=== PATIENT | male | born 1970 | race Caucasian/White ===

== ENCOUNTER 2020-06-07 11:39 | Outpatient (CLI) | payer OTHER, SELFPAY ==
--- NOTE | ~2020-06-07 | XR_ITS ---
XR elbow RT 2V DATE: 06/07/2020 12:15 INDICATION: Injury 2 months ago. Persistent right elbow pain. TECHNIQUE: AP and lateral views COMPARISON: None FINDINGS: Slight dorsal olecranon process spurring. No fracture or dislocation or joint effusion. Joint spaces are preserved. IMPRESSION: No fracture or dislocation or joint effusion Reviewed, dictated and finalized at location A.
== END 2020-06-07 11:40 | disposition home or self-care (01) ==
LOC: ANHIMG 11:48
PROVIDERS: PCP Family Medicine; Visit Provider Physician Assistant
DX: S59.901A Unspecified injury of right elbow, initial encounter (principal); M25.521 Pain in right elbow; X58.XXXA Exposure to other specified factors, initial encounter
CPT/HCPCS: 73070

== ENCOUNTER → 2023-07-01 10:24 | Outpatient (CLI) | payer OTHER, SELFPAY ==
--- NOTE | ~2023-07-01 | CT_ITS ---
EXAMINATION: CT lung screening DATE: 07/01/2023 10:38 INDICATION: Personal history of nicotine dependence TECHNIQUE: Computed tomography (CT) of the chest was performed without intravenous contrast. The dose -length product was 197.97 mGy-cm. Automated exposure control and iterative reconstruction technique were employed. COMPARISON: None FINDINGS: No thoracic lymphadenopathy. No significant pleural or pericardial effusion. There are scat tered calcified granulomas of the lungs, hilum and spleen. There are a few small scattered noncalcifi ed nodules measuring 3 mm or less. There is emphysema. There are bilateral groundglass densities with mosaic attenuation in the upper lobes. No pneumothorax. No endobronchial lesions. No acute osseous a bnormality. IMPRESSION: 1. Lung-RADS category 2: Benign appearance or behavior. Continue annual screening with noncontrast lo w-dose chest CT in 12 months. Reviewed, dictated and finalized at location A. IMPRESSION: 1. Lung-RADS category 2: Benign appearance or behavior. Continue annual screeni ng with noncontrast low-dose chest CT in 12 months.
== END ==
PROVIDERS: PCP Family Medicine; Visit Provider Family Medicine
DX: Z12.2 Encounter for screening for malignant neoplasm of respiratory organs (principal); Z87.891 Personal history of nicotine dependence
CPT/HCPCS: 71271

== ENCOUNTER 2023-07-16 00:47 | Day surgery (SDC) | payer OTHER, SELFPAY ==
[2023-07-02 12:06] VITALS: BMI 30.2
--- NOTE | 2023-07-14 09:04 | SUR.PREOP ---
Patient called regarding upcoming procedure. Reviewed preop instructions, appointment times, and procedure prep.
--- NOTE | 2023-07-15 15:36 | PM.HPGS ---
History of Present Illness History of Present Illness Consent: Risks, benefits, and alternatives have been discussed and questions answered. Patient agrees to proceed with procedure. Chief complaint: neoplasm screening, GERD w/o Esophagitis Narrative: Bienvenido Higuera is a 52 year old male Referred for colon cancer screening. He also has a sensation that there is something in his throat in the suprasternal notch. Sometimes when swallowing you will feel as though something get caught there he can regurgitate it or cough it back up. He does not feel things get caught in the substernal area. He just started taking omeprazole a couple weeks ago and thinks that might be helping a bit. Review of Systems Review of Systems: All systems reviewed & are unremarkable except as noted in HPI and below PMFSH Past Medical History Medical History Benign essential HTN ANJALI (generalized anxiety disorder) Hyperglycemia Mixed hyperlipidemia Smoker Surgical History Surgical History H/O left knee surgery History of arthroscopic knee surgery Previous back surgery Family History Family History Father , 60yrs old Lung cancer Mother Breast cancer Hypertension Heart disease Social History Social History Social History: Smoking packs per day: 1 Smoking cigarettes per day: 20.0 Years smoked: 35 Smoking pack-years: 35.00 Smoking status: Heavy tobacco smoker Tobacco type: cigarettes Second hand tobacco smoke exposure: Yes Alcohol intake: current Alcohol use details: occas Substance use: never Substance use type: does not use Lack of Transportation: No Lack of Food: Never True Current Housing: I Have Housing Concerned About Future Housing: No Difficulty Paying Gas/Electric Bills: No Difficulty Paying for Meds: No Currently Unemployed: No Education: High School Diploma/GED Difficulty w/ Childcare or Family Care: No Living arrangements: with family Occupation/Education: occupation 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 Gender identity (if verbalized by the patient): Male Sexual Orientation (if Verbalized by the Patient): Straight or Heterosexual Spiritual care concerns: No Meds Home Medications and Allergies Home Medications Medication Instructions Recorded Confirmed Type alprazolam 1 mg tablet (Xanax) 1 mg PO DAILY PRN anxiety #30 tabs 12/10/21 07/16/23 Rx amlodipine 5 mg tablet 5 mg PO DAILY #90 tabs 02/26/23 07/16/23 Rx rosuvastatin 10 mg tablet 10 mg PO DAILY #90 tabs 03/29/23 07/16/23 Rx irbesartan 150 mg tablet See Rx Instructions .Route 05/31/23 07/16/23 Rx .COMPLEX #90 tabs metoprolol tartrate 50 mg tablet See Rx Instructions .Route 05/31/23 07/16/23 Rx .COMPLEX #180 tabs azelastine 137 mcg (0.1 %) nasal 137 mcg (0.137 mL) intranasal Q12H 06/25/23 07/16/23 Rx spray aerosol #30 mL benzonatate 200 mg capsule 200 mg PO TID #90 caps 06/25/23 07/16/23 Rx fluticasone propionate 50 1 spray intranasal BID #18 mL 06/25/23 07/16/23 Rx mcg/actuation nasal spray,suspension omeprazole 40 mg capsule,delayed 40 mg PO DAILY #90 caps 06/25/23 07/16/23 Rx release Allergies Allergy/AdvReac Type Severity Reaction Status Date / Time No Known Allergies Allergy Verified 07/16/23 09:05 Exam Const: General: alert Orientation/consciousness: patient oriented x3 Resp: Auscultation: clear to auscultation bilaterally Cardio: Rhythm: regular rhythm GI: GI Palp: Yes Soft to palpation and No Tenderness to palpation present (GI) Neuro: General: patient oriented x3 Assessment and Plan Assessment and plan (1) Colon cancer screening: Code(s): Z12.11 - Encounter for screening for malignant neoplasm of colon Status: Acute Assessment a
[2023-07-16 09:07] VITALS: BP 120/80; PULSE 76; RESP 16; TEMP 36.3; O2SAT 99
[2023-07-16] MEDS: LACTATED RINGERS 1,000 ML 150 ML IV CONT (09:15)
--- NOTE | 2023-07-16 09:48 | WPDANESEPPF ---
Anes - Initial Pre Proc Eval Procedure: Operation Date: 07/16/23 09:45 Proposed Procedures p Esophagogastroduodenoscopy & Screening Colonoscopy - Martín Unger MD Date/Time: 07/16/23 09:48 Surgeon: Martín Unger MD Pre Op Diagnosis: neoplasm screening, GERD w/o Esophagitis Patient Data Age: 52 Gender: M Height: 1.75 m Weight: 95.9 kg Last Vital Signs Temp 97.4 F L 07/16/23 09:07 Pulse 76 07/16/23 09:07 Resp 16 07/16/23 09:07 BP 120/80 07/16/23 09:07 Pulse Ox 99 07/16/23 09:07 O2 Del Method Room Air 07/16/23 09:07 Allergies Allergy/AdvReac Type Severity Reaction Status Date / Time No Known Allergies Allergy Verified 07/16/23 09:05 Home Medications Medication Instructions Recorded Confirmed Type alprazolam 1 mg tablet (Xanax) 1 mg PO DAILY PRN anxiety #30 tabs 12/10/21 07/16/23 Rx amlodipine 5 mg tablet 5 mg PO DAILY #90 tabs 02/26/23 07/16/23 Rx rosuvastatin 10 mg tablet 10 mg PO DAILY #90 tabs 03/29/23 07/16/23 Rx irbesartan 150 mg tablet See Rx Instructions .Route 05/31/23 07/16/23 Rx .COMPLEX #90 tabs metoprolol tartrate 50 mg tablet See Rx Instructions .Route 05/31/23 07/16/23 Rx .COMPLEX #180 tabs azelastine 137 mcg (0.1 %) nasal 137 mcg (0.137 mL) intranasal Q12H 06/25/23 07/16/23 Rx spray aerosol #30 mL benzonatate 200 mg capsule 200 mg PO TID #90 caps 06/25/23 07/16/23 Rx fluticasone propionate 50 1 spray intranasal BID #18 mL 06/25/23 07/16/23 Rx mcg/actuation nasal spray,suspension omeprazole 40 mg capsule,delayed 40 mg PO DAILY #90 caps 06/25/23 07/16/23 Rx release Patient hx anesthesia problems: other (states combative during the procedures) Family hx anesthesia problems: none Results Review: All pre-operative results and documents have been reviewed as part of the pre-operative evaluation. [facility] Past Medical History Medical History Benign essential HTN ANJALI (generalized anxiety disorder) Hyperglycemia Mixed hyperlipidemia Smoker Surgical History Surgical History H/O left knee surgery History of arthroscopic knee surgery Previous back surgery Family History Family History Father , 60yrs old Lung cancer Mother Breast cancer Hypertension Heart disease Social History Social History Social History: Smoking packs per day: 1 Smoking cigarettes per day: 20.0 Years smoked: 35 Smoking pack-years: 35.00 Smoking status: Heavy tobacco smoker Tobacco type: cigarettes Second hand tobacco smoke exposure: Yes Alcohol intake: current Alcohol use details: occas Substance use: never Substance use type: does not use Lack of Transportation: No Lack of Food: Never True Current Housing: I Have Housing Concerned About Future Housing: No Difficulty Paying Gas/Electric Bills: No Difficulty Paying for Meds: No Currently Unemployed: No Education: High School Diploma/GED Difficulty w/ Childcare or Family Care: No Living arrangements: with family Occupation/Education: occupation 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 Gender identity (if verbalized by the patient): Male Sexual Orientation (if Verbalized by the Patient): Straight or Heterosexual Spiritual care concerns: No Anes - Eval Final PreProcedure Day of Procedure 07/16/23 09:48 Patient weight: obese Heart: regular rate and rhythm Lungs: clear to auscultation Airway: Mallampati scale class II Neurological: alert and oriented Last oral intake: >/= 8 hours ASA classification: III Emergent: no Anesthetic plan: proceed Anesthesia type and monitoring: general GIVS and standard monitoring Results Review: All pre-operative results and documents have been reviewed as part of the pre-operative evaluation. Informed Consent
[2023-07-16] MEDS: SIMETHICONE ORAL SUSPENSION 20 MG/0.3 ML 30 ML BOTTLE 0.6 ML IRRIGATION (10:21)
--- NOTE | 2023-07-16 10:22 | SUR.OPER ---
EGD ended at 1010. Colonoscopy began at 1017.
[2023-07-16 10:32] VITALS: BP 105/62; PULSE 81; RESP 34; O2SAT 100
[2023-07-16 10:42] VITALS: BP 100/61; PULSE 79; RESP 26; O2SAT 96
[2023-07-16 10:52] VITALS: BP 101/66; PULSE 76; RESP 28; O2SAT 97
== END 2023-07-16 10:59 | disposition home or self-care (01) ==
PROVIDERS: PCP Family Medicine; Visit Provider Internal Medicine Gastroenterology
PROC: 0DJ08ZZ Inspection of Upper Intestinal Tract, Via Natural or Artificial Opening Endoscopic (ICD-10-PCS; CPT 43235; principal; 2023-07-16 09:45)
DX: Z12.11 Encounter for screening for malignant neoplasm of colon (principal); K62.1 Rectal polyp; K21.9 Gastro-esophageal reflux disease without esophagitis; K57.30 Diverticulosis of large intestine without perforation or abscess without bleeding; I10 Essential (primary) hypertension; F41.1 Generalized anxiety disorder; E78.2 Mixed hyperlipidemia; F17.210 Nicotine dependence, cigarettes, uncomplicated; F10.90 Alcohol use, unspecified, uncomplicated; Z82.49 Family history of ischemic heart disease and other diseases of the circulatory system
CPT/HCPCS: 43239; 45380; 88305; J2371; J2704; J7120

== ENCOUNTER 2023-07-20 08:06 | Outpatient (CLI) | payer OTHER, SELFPAY ==
--- NOTE | ~2023-07-20 | US_ITS ---
US art doppler w press LE BI INDICATION: Peripheral vascular disease TECHNIQUE: Segmental pressures and plethysmographic and Doppler waveforms of the brachial and lower e xtremity arteries were obtained. COMPARISON: None. FINDINGS: Right and left brachial artery pressures of 134 mm Hg and 142 mm Hg, respectively, are concordant (no rmal difference <= 30 mmHg). There is biphasic flow in the lower extremity arteries. The right ankle-brachial index (GENO) is 1.18 (normal >= 0.9-1.0). The right great toe-brachial index (TBI) is 0.2 (normal >= 0.60). The left GENO is 1.15. The left TBI is 0.53. IMPRESSION: 1. Normal bilateral ankle-brachial indices. 2: Diminished bilateral toe brachial indices, right greater than left, consistent with peripheral art erial disease. Reviewed, dictated and finalized at location L. OUT MAN IMPRESSION: 1. Normal bilateral ankle-brachial indices. 2: Diminished bilateral toe brachial indices, right greater than left, consiste nt with peripheral arterial disease.
== END 2023-07-20 08:07 | disposition home or self-care (01) ==
PROVIDERS: PCP Family Medicine; Visit Provider Family Medicine
DX: I73.9 Peripheral vascular disease, unspecified (principal)
CPT/HCPCS: 93923

== ENCOUNTER 2024-07-16 10:21 | Emergency (ER) | payer OTHER, SELFPAY ==
--- NOTE | ~2024-07-16 | XR_ITS ---
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 RESULT: Lines, tubes, and devices: None. Lungs and pleura: Clear. Bilateral calcified granulomas. Cardiomediastinal silhouette: Stable. Other: No acute osseous or upper abdominal finding. IMPRESSION: No acute cardiopulmonary process. Reviewed, dictated and finalized at location K. MATIC FANCY MACHINE OPERATOR
--- NOTE | ~2024-07-16 | CT_ITS ---
EXAMINATION: CT facial bones wo con DATE: 07/16/2024 16:53 INDICATION: Syncope, extrusive luxation R central incisor . TECHNIQUE: Computed tomography (CT) of the facial bones and maxillofacial region was performed withou t intravenous contrast. Automated exposure control and iterative reconstruction technique were employ ed. The dose-length product was 316.77 mGy-cm. COMPARISON: None. FINDINGS: Soft Tissues: Soft tissue swelling of the upper lip. Facial bones: Fracture of the maxillary spine. Slight displacement and periapical lucency noted at t he right maxillary central incisor. No lytic or blastic process. Eyes: The globes are intact. The soft tissue planes of the orbits are maintained. Paranasal Sinuses: Mucosal thickening in the left frontal and ethmoid sinuses. Nodular mucosal thick ening in the bilateral maxillary sinuses. The remaining aerated spaces are clear. Foreign Bodies: No radiopaque foreign bodies. Other Findings: None. IMPRESSION: Mildly displaced maxillary spine fracture. Slight displacement and periapical lucency noted at the right maxillary central incisor. Reviewed, dictated and finalized at location K. DRUG WORKER
--- NOTE | 2024-07-16 14:29 | ECG_ITS ---
Test Date: 2024-07-16 14:54:16 Measurements Intervals [place] Rate: 69 P: 5 RI: 175 QRS: -22 QRSD: 110 T: 5 QT: 390 QTc: 421 Interpretive Statements SINUS RHYTHM VOLTAGE CRITERIA FOR LVH BORDERLINE R WAVE PROGRESSION, ANTERIOR LEADS BORDERLINE ECG No previous ECG available for comparison Electronically Signed On 07-16-2024 18:49:56 MATERIAL PROCESSOR by Cole Muir D.O.
[2024-07-16 14:43] VITALS: BP 154/88; PULSE 72; RESP 20; O2SAT 99
[2024-07-16 14:51] LABS: Glucose Point of Care 115 mg/dl (65-105)
[2024-07-16 14:56] LABS: Basophils Percent Auto 0.4 % (0.2-1.2); Eosinophils Absolute Auto 0.1 K/mm3 (0-0.3); Eosinophils Percent Auto 1.4 % (0-4.4); Hematocrit 46.7 % (42.0-52.0); Hemoglobin 15.7 g/dL (14.0-18.0); Immature Granulocyte Absolute 0.06 K/mm3 (0.00-0.031); Immature Granulocyte Percent A 0.6 % (0-0.5); Lymphocytes Absolute Auto 1.92 K/mm3 (0.9-3.2); Lymphocytes Percent Auto 18.7 % (18.3-44.2); Mean Corpuscular HGB Conc 33.6 g/dl (32-36); Mean Corpuscular Hemoglobin 31.6 pg (26-34); Mean Platelet Volume 9.5 fl (7.4-10.4); Monocytes Absolute Auto 0.9 K/mm3 (0.1-0.6); Monocytes Percent Auto 8.7 % (2.6-8.5); Neutrophils Absolute Auto 7.2 K/mm3 (1.3-6.7); Neutrophils Percent Auto 70.2 % (45.5-73.1); Platelet Count Result 266 k/mm3 (150-375); Red Blood Count 4.97 M/mm3 (4.6-6.20); Red Cell Distribution Width 13.8 % (11.5-14.5); White Blood Count 10.3 K/mm3 (4.5-10.0)
[2024-07-16 15:06] LABS: Alanine Aminotransferase 39 U/L (6-50); Albumin Level 4.7 g/dL (3.5-5.1); Alkaline Phosphatase 83 U/L (38-126); Anion Gap 8 mmol/L (4-12); Aspartate Amino Transferase 37 U/L (17-59); Bilirubin,Total 1.2 mg/dL (0.2-1.3); Blood Urea Nitrogen 11 mg/dL (9-20); Calcium 9.6 mg/dL (8.4-10.2); Carbon Dioxide 28 mmol/L (22-30); Chloride 103 mmol/L (98-107); Estimated CRCL calculation 84 ml/min; Estimated Glomerular Filt Rate > 60; Glucose 116 mg/dL (65-110); Potassium 3.9 mmol/L (3.4-5.0); Sodium 139 mmol/L (137-145)
[2024-07-16 15:18] LABS: NT Pro B Type Natriuretic Pept 27 pg/mL (19.9-100); Troponin I < 0.012 ng/mL (0.000-0.034)
[2024-07-16] MEDS: SODIUM CHLORIDE 0.9% IV 1,000 ML 999 ML IV CONT (15:31)
--- NOTE | 2024-07-16 16:27 | ED_ITS ---
HPI - General Adult General Chief complaint: Syncope Stated complaint: fall, syncopy after coughing Time Seen by Provider: 07/16/24 14:27 History of Present Illness HPI narrative: This is a 53-year-old male presenting for episode of syncope. Last night the patient was drinking alcohol and taking his friend's in his basement. He then coughed several times and then lost consciousness falling forward and striking his face on the ground. The patient regained consciousness after about 30 seconds. He returned to baseline immediately. No tongue biting or urinary incontinence. He did sustain a large laceration to his lip and displacement of his right central upper incisor. He did not want to come to the hospital at that point and presented approximately 15 hours after the initial injury. No use of blood thinners. No history of seizures. No chest pain difficulty breathing or dizziness. Patient notes he has had 2 previous episodes of cough syncope over last 3 years. Related Data Allergies Allergy/AdvReac Type Severity Reaction Status Date / Time cilostazol AdvReac Intermediate Headache Uncoded 07/16/24 14:34 PMFSH Past Medical History Medical History Benign essential HTN ANJALI (generalized anxiety disorder) Hyperglycemia Mixed hyperlipidemia Smoker Surgical History Surgical History H/O left knee surgery History of arthroscopic knee surgery Previous back surgery Family History Family History Father , 60yrs old Lung cancer Mother Breast cancer Hypertension Heart disease Social History Social History Social History: Smoking packs per day: 1 Smoking cigarettes per day: 20.0 Years smoked: 35 Smoking pack-years: 35.00 Smoking status: Light tobacco smoker Tobacco type: cigarettes Second hand tobacco smoke exposure: Yes Alcohol intake: current Alcohol use details: Occasionally Substance use: never Substance use type: does not use Do You Feel Safe in your Home?: Yes Lack of Transportation: No Lack of Food: Never True Current Housing: I Have Housing Concerned About Future Housing: No Difficulty Paying Gas/Electric Bills: No Difficulty Paying for Meds: No Currently Unemployed: No Education: High School Diploma/GED Difficulty w/ Childcare or Family Care: No Living arrangements: with family Occupation/Education: occupation 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 Head: Vertical laceration with jagged edges to the patient's lip ranging from the inner mucosal service to to just before the vermilion border. Granulation tissue present. Extremes of luxation of the right central incisor, bruising along the gumline for the right upper central and lateral incisor EYES: EOMI, NOSE: Atraumatic NECK: Trachea midline RESPIRATORY: No increased rate of breathing CARDIOVASCULAR: RRR, ABDOMINAL: Non-distended MUSCULOSKELETAl: No obvious deformities NEURO: Alert. Moving 4/4 extremities SKIN:: Warm, dry. Normal color PSYCHIATRIC: Normal affect Course Vital Signs Vital signs: Vital Signs Pulse Rate 72 07/16/24 14:43 Respiratory Rate 20 07/16/24 14:43 Blood Pressure 154/88 H 07/16/24 14:43 Pulse Oximetry 99 07/16/24 14:43 Pulse Rate 72 07/16/24 14:43 Respiratory Rate 20 07/16/24 14:43 Blood Pressure 154/88 H 07/16/24 14:43 Pulse Oximetry 99 07/16/24 14:43 Procedures Laceration Laceration 1: Date: 07/16/24 Site: lip Side (If applicable): left Size (cm): 2 Description: irregular Depth: simple, single layer Local Anesthetic: lidocaine 1% Pre-repair: wound explored and irrigated ====== Skin Level ====== Size (cm): 5-0 (fast absorbing gut) Number of sutures: 3 Technique: simple, interrupted ====== Subcutaneous Layer ====== ====== Muscle Layer ====== ====== Tendon Layer ====== Medical Decision Making MDM Narrative Medical decision making narrative: -Course: 53-year-old male presenting 15 hours after an episode of cough syncope. Patient has a laceration to his lip which was repaired using absorbable sutures. CT showed a mildly displaced maxillary spine fracture. No septal hematoma. No difficulty breathing through the nose or obvious deformity. Syncope workup was negative. Patient will be discharged to follow-up with Plastic surgery as needed for his maxillary spine fracture. Patient has extremes of luxation of his right upper central incisor. I was unable to reduce the tooth, likely because it is 15 hours after injury. Patient instructed to follow-up with a dentist tomorrow morning. -DDX includes but is not limited to: Cough syncope, cardiac syncope, dehydration, alcohol intoxication -Independent interpretation of studies: Labs reviewed imaging reviewed Independent EKG interpretation: Rhythm [sinus], Rate [69], Strawn -[normal], SD -[normal], QRS [narrow], QTC [normal], T waves -[negative for concerning inversions], ST Segments - [Negative for concerning elevations] Final interpretations: [Normal Sinus Rhythm] -Shared decision making / Disposition: Discharged Vital Signs Vital Signs: Vital Signs Pulse Rate 72 07/16/24 14:43 Respiratory Rate 20 07/16/24 14:43 Blood Pressure 154/88 H 07/16/24 14:43 Pulse Oximetry 99 07/16/24 14:43 Pulse Rate 72 07/16/24 14:43 Respiratory Rate 20 07/16/24 14:43 Blood Pressure 154/88 H 07/16/24 14:43 Pulse Oximetry 99 07/16/24 14:43 Lab Data 07/16/24 14:47 07/16/24 14:47 Labs: Lab Results 07/16/24 07/16/24 Range/Units 14:46 14:47 WBC 10.3 H (4.5-10.0) K/mm3 RBC 4.97 (4.6-6.20) M/mm3 Hgb 15.7 (14.0-18.0) g/dL Hct 46.7 (42.0-52.0) % MCV 94.0 (80-100) fl MCH 31.6 (26-34) pg MCHC 33.6 (32-36) g/dl RDW 13.8 (11.5-14.5) % Plt Count 266 (150-375) k/mm3 MPV 9.5 (7.4-10.4) fl Immature Gran % (Auto) 0.6 H (0-0.5) % Neut % (Auto) 70.2 (45.5-73.1) % Lymph % (Auto) 18.7 (18.3-44.2) % [place] % (Auto) 8.7 H (2.6-8.5) % Eos % (Auto) 1.4 (0-4.4) % Baso % (Auto) 0.4 (0.2-1.2) % Lymph # (Auto) 1.92 (0.9-3.2) K/mm3 [place] # (Auto) 0.9 H (0.1-0.6) K/mm3 Eos # (Auto) 0.1 (0-0.3) K/mm3 Baso # (Auto) 0.0 (0.0-0.1) K/mm3 Abs Immat Gran (auto) 0.06 H (0.00-0.031) K/mm3 Absolute Neuts (auto) 7.2 H (1.3-6.7) K/mm3 Absolute Nucleated RBC 0.000 (0.0-0.012) K/mm3 Nucleated RBC % 0.0 (0.0-0.2) % Sodium 139 (137-145) mmol/L Potassium 3.9 (3.4-5.0) mmol/L Chloride 103 (98-107) mmol/L Carbon Dioxide 28 (22-30) mmol/L Anion Gap 8 (4-12) mmol/L BUN 11 (9-20) mg/dL Creatinine 1.00 (0.7-1.3) mg/dL Estim Creat Clear Calc 84 ml/min Estimated GFR > 60 (59 - ) Glucose 116 H (65-110) mg/dL POC Capillary Glucose 115 H (65-105) mg/dl Calcium 9.6 (8.4-10.2) mg/dL Total Bilirubin 1.2 (0.2-1.3) mg/dL AST 37 (17-59) U/L ALT 39 (6-50) U/L Alkaline Phosphatase 83 (38-126) U/L Troponin I < 0.012 (0.000-0.034) ng/mL NT-Pro-B Natriuret Pep 27 (19.9-100) pg/mL Total Protein 9.0 H (6.3-8.2) g/dL Albumin 4.7 (3.5-5.1) g/dL Discharge Plan Discharge Clinical Impression: Luxated tooth, Maxillary fracture, unspecified side, initial encounter for closed fracture, Cough syncope Patient Disposition: Home, Self-Care Condition: Stable Instructions: Antibiotic Form, Nasal Fracture (ED), Syncope (ED) Additional Instructions: He was seen in the emergency department after fainting episode. This was likely cough syncope Please follow-up with your primary care physician for further management. Return if you develop chest pain difficulty breathing or further episodes. You need to see a dentist in 24 hours for your front tooth. Please call the ENT clinic listed below to follow-up on your maxillary spine fracture. Return to ED if develops severe pain, inability to breathe through her nose or would like re-evaluation. Prescriptions: No Action omeprazole 40 mg capsule,delayed release(DR/EC) 40 mg PO DAILY Qty: 90 2RF rosuvastatin 10 mg tablet 10 mg PO DAILY Qty: 90 1RF amlodipine 5 mg tablet See Rx Instructions .ROUTE .COMPLEX Qty: 90 0RF Dose Instruction: TAKE 1 TABLET BY MOUTH DAILY Rx Instructions: TAKE 1 TABLET BY MOUTH DAILY alprazolam 0.5 mg tablet 0.5 mg PO QHS PRN (Reason: anxiety) Qty: 30 0RF metoprolol tartrate 50 mg tablet See Rx Instructions .ROUTE .COMPLEX Qty: 180 0RF Dose Instruction: TAKE 1 TABLET BY MOUTH TWICE A DAY Rx Instructions: TAKE 1 TABLET BY MOUTH TWICE A DAY irbesartan 150 mg tablet See Rx Instructions .ROUTE .COMPLEX Qty: 90 1RF Dose Instruction: TAKE 1 TABLET BY MOUTH DAILY Rx Instructions: TAKE 1 TABLET BY MOUTH DAILY azelastine 137 mcg (0.1 %) aerosol,spray 137 mcg intranasal Q12H Qty: 30 2RF Rx Instructions: administer into each nostril fluticasone propionate 50 mcg/actuation spray,suspension 1 spray intranasal BID Qty: 18 2RF Rx Instructions: administer into each nostril ipratropium bromide 21 mcg (0.03 %) spray,non-aerosol See Rx Instructions .ROUTE .COMPLEX Qty: 30 0RF Dose Instruction: INSTILL 2 SPRAYS INTO EACH NOSTRIL TWICE DAILY Rx Instructions: INSTILL 2 SPRAYS INTO EACH NOSTRIL TWICE DAILY Follow-up/Referrals: Reinaldo Lance MD [Physician] - 3 Days (maxillary spine fracture) Angela Armando MD [Primary Care Provider] - 3 Days (Syncope )
[2024-07-16] MEDS: TETANUS,DIPHTHERIA,AC PERTUSSIS ADULT (0.5 ML) BOOSTRIX IM (18:06)
[2024-07-16 18:25] VITALS: BP 150/93; PULSE 80; RESP 16; TEMP 36.9; O2SAT 99
== END 2024-07-16 18:27 | disposition home or self-care (01) ==
PROVIDERS: Emergency Provider Emergency Medicine; PCP Family Medicine
DX: S01.511A Laceration without foreign body of lip, initial encounter (principal); S03.2XXA Dislocation of tooth, initial encounter; S02.401A Maxillary fracture, unspecified side, initial encounter for closed fracture; R55 Syncope and collapse; R05.9 Cough, unspecified; W18.30XA Fall on same level, unspecified, initial encounter; I10 Essential (primary) hypertension; F41.1 Generalized anxiety disorder; E78.2 Mixed hyperlipidemia; F17.210 Nicotine dependence, cigarettes, uncomplicated; Z23 Encounter for immunization
CPT/HCPCS: 12011; 36415; 70486; 71045; 80053; 82948; 83880; 84484; 85025; 90471; 90715; 93005; 96360; 96361; 99284; J7030

== ENCOUNTER 2024-10-12 14:39 | Outpatient (CLI) | payer OTHER, SELFPAY ==
--- NOTE | ~2024-10-12 | CT_ITS ---
EXAMINATION:CT lung screening DATE: 10/12/2024 14:56 INDICATION: Personal history of nicotine dependence. Current smoker with 70 pack year history. TECHNIQUE: Computed tomography (CT) of the chest was performed without intravenous contrast. Automate d exposure control and iterative reconstruction technique were employed. The dose-length product (DLP ) was 223.00 mGy-cm. COMPARISON: Chest CT 07/01/2023 FINDINGS: Calcified bilateral lung nodules and calcified right hilar lymph nodes are consistent with old granulomatous disease. There is moderate emphysema. There are a few scattered noncalcified nodule s in the lungs measuring up to 3 mm. No pleural effusion. The heart size is normal. There are coronar y artery calcifications. No pericardial effusion. There is diffuse hepatic steatosis. Calcifications in the spleen are consistent with old granulomatous disease. There are old healed right rib fractures . There is mild thoracic spondylosis. IMPRESSION: 1. Lung-RADS category 2: Benign appearance or behavior. Continue annual screening with noncontrast lo w-dose chest CT in 12 months. Reviewed, dictated and finalized at location A. TACKER IMPRESSION: 1. Lung-RADS category 2: Benign appearance or behavior. Continue annual screeni ng with noncontrast low-dose chest CT in 12 months.
== END 2024-10-12 14:40 | disposition home or self-care (01) ==
LOC: MICIMG 14:40
PROVIDERS: PCP Family Medicine; Visit Provider Student in an Organized Health Care Education/Training Program
DX: Z12.2 Encounter for screening for malignant neoplasm of respiratory organs (principal); Z87.891 Personal history of nicotine dependence
CPT/HCPCS: 71271